=== PATIENT | female | born 1955 ===

== ENCOUNTER 2016-10-20 16:23 | Observation (INO) | payer BC ==
[2016-10-20 16:56] VITALS: BMI 25.2
--- NOTE | 2016-10-20 17:07 | ED PDOC ---
Arrival/HPI - General Time Seen by Provider: 10/20/16 16:29 Historian: Patient - History of Present Illness Narrative History of Present Illness (Text): 10/20/16 17:04 61 year old female, pmh including hypertension/hyperlipidemia, nkda, complaining of elevated blood pressure and lt. sided chest discomfort/pain/ palpitation and elevated blood pressure x 1 day. Pt. stated that she woke up this morning with left sided chest discomfort, feeling blood pressure elevated, went to see the Dr. Blake's LABOR[employer] C[employer]TING TOOL and told her to come to the ER for evaluation, no shortness of breath but there is lt. sided chest weird sensation as if someone is stepping on it with on and off timing, no coughing, no fever or chills, no diarrhea, no other medical or psychological complaints. Past Medical History - Provider Review Nursing Documentation Reviewed: Yes Family/Social History - Physician Review Nursing Documentation Reviewed: Yes Family/Social History: Unknown Family HX Allergies/Home Meds Allergies/Adverse Reactions: Allergies No Known Allergies Allergy (Verified 10/20/16 17:02) Home Medications: Home Meds Medication Instructions Recorded Confirmed Ezetimibe [Zetia] 10 mg PO DAILY 10/20/16 10/20/16 Lisinopril [Zestril] 10 mg PO DAILY 10/20/16 10/20/16 Metoprolol Succinate XL [Toprol XL] 25 mg PO BRK 10/20/16 10/20/16 Review of Systems - Review of Systems Constitutional: absent: Fatigue, Fevers ENT: absent: Hearing Changes Respiratory: absent: SOB, Cough Cardiovascular: Chest Pain Gastrointestinal: absent: Abdominal Pain, Diarrhea, Nausea, Vomiting Musculoskeletal: absent: Arthralgias Skin: absent: Rash, Pruritis, Skin Lesions Hemo/Lymphatic: absent: Adenopathy, Easy Bleeding Physical Exam Vital Signs Reviewed: Yes Vital Signs Temp Pulse Resp BP Pulse Ox 10/20/16 20:28 68 18 143/78 95 10/20/16 19:37 60 177/104 H 10/20/16 16:54 98.1 F 68 14 180/85 H 99 Temperature: Afebrile Blood Pressure: Hypertensive Pulse: Regular Respiratory Rate: Normal Appearance: Positive for: Well-Appearing, Non-Toxic, Comfortable Pain Distress: None Mental Status: Positive for: Alert and Oriented X 3 - Systems Exam Head: Present: Atraumatic, Normocephalic Pupils: Present: PERRL Extroacular Muscles: Present: EOMI Conjunctiva: Present: Normal Mouth: Present: Moist Mucous Membranes Neck: Present: Normal Range of Motion Respiratory/Chest: Present: Clear to Auscultation, Good Air Exchange. No: Respiratory Distress, Accessory Muscle Use Cardiovascular: Present: Regular Rate and Rhythm, Normal S1, S2. No: Murmurs Abdomen: Present: Normal Bowel Sounds. No: Tenderness, Distention, Peritoneal Signs Back: Present: Normal Inspection Upper Extremity: Present: Normal Inspection. No: Cyanosis, Edema Lower Extremity: Present: Normal Inspection. No: Edema Neurological: Present: GCS=15, Speech Normal, Motor Func Grossly Intact, Gait Normal, Memory Normal Skin: Present: Warm, Dry, Normal Color. No: Rashes Psychiatric: Present: Alert, Oriented x 3, Normal Insight, Normal Concentration Medical Decision Making ED Course and Treatment: 10/20/16 17:02 -labs -ekg/cxr -aspirin 325mg -Observe and reassess 10/20/16 19:12 -EKG: NSR @ 71 BPM, no ST elevation or depression, no T wave inversion. -Chest x-ray: no active disease -Labs show no acute findings, 1st set of troponin is negative. -Pt. stated that she still feels on and off palpitation. Pt. needs to be admitted for observation. Clonidine 0.1mg po ordered. -Dr. Emmanuel paged. 10/20/16 20:14 -Dr. Pace is covering for Dr. Emmanuel, discussed about the labs/radiology studies, request to admit to Dr. Pace. Dr. Pace request Dr. Meadows on routine consult consult. . -I discussed with Dr. Sutton about the case/discussion, he will put in the observation order as the patient will need 24 hours of troponin series. - Lab Interpretations Lab Results: 10/20/16 17:30 10/20/16 17:30 Lab Results 10/20/16 17:30: WBC 7.1, RBC 4.40, Hgb 12.8, Hct 38.3, MCV 87.0, MCH 29.1, MCHC 33.4, RDW 13.3, Plt Count 283, MPV 9.4, Gran % 62.2, Lymph % (Auto) 28.1, [place] % (Auto) 8.3 H, Eos % (Auto) 1.1 L, Baso % (Auto) 0.3, Gran # 4.42, Lymph # 2.0 , [place] # 0.6, Eos # 0.1, Baso # 0.02 10/20/16 17:30: Sodium 142, Potassium 4.3, Chloride 103, Carbon Dioxide 32, Anion Gap 11, BUN 18, Creatinine 0.8, Est GFR ( Amer) > 60, Est GFR (Non- Af Amer) > 60, Random Glucose 85, Calcium 9.3, Total Bilirubin 0.4, AST 33, ALT 34, Alkaline Phosphatase 62, Lactate Dehydrogenase 462, Total Creatine Kinase 118, Troponin I < 0.01, Total Protein 7.6, Albumin 4.3, Globulin 3.3, Albumin/ Globulin Ratio 1.3, Lipase 228 10/20/16 17:20: Urine Color Straw, Urine Appearance Clear, Urine pH 7.0, Ur Specific [place] 1.010, Urine Protein Negative, Urine Glucose (UA) Negative, Urine Ketones Negative, Urine Blood Small H, Urine Nitrate Negative, Urine Bilirubin Negative, Urine Urobilinogen 0.2, Ur Leukocyte Esterase Negative, Urine RBC 0 - 2, Urine WBC 0 - 2, Ur Epithelial Cells 0 - 2 I have reviewed the lab results: Yes Interpretation: No clinic. lab abnormalty - RAD Interpretation Radiology Orders: 10/20/16 17:03 CHEST PORTABLE [RAD] Stat Chest x-ray: no active disease Printing Gray Cloth Tender: Radiologist - EKG Interpretation EKG Interpretation (Text): 10/20/16 17:08 NSR @ 71 BPM, no ST elevation or depression, no T wave inversion. Interpreted by ED Physician: Yes Type: 12 lead EKG - Medication Orders Current Medication Orders: Discontinued Medications Acetaminophen (Tylenol 325mg Tab) 650 mg PO STAT STA Stop: 10/21/16 11:30 Last Admin: 10/21/16 12:00 Dose: 650 mg Aspirin (Aspirin) 325 mg PO STAT STA Stop: 10/20/16 17:04 Last Admin: 10/20/16 17:28 Dose: 325 mg Aspirin (Aspirin Chewable) 81 mg PO DAILY [facility] Last Admin: 10/21/16 09:11 Dose: 81 mg Clonidine HCl (Catapres) 0.1 mg PO STAT STA Stop: 10/20/16 19:12 Last Admin: 10/20/16 19:37 Dose: 0.1 mg Ezetimibe (Zetia) 10 mg PO DAILY [facility] Last Admin: 10/21/16 09:11 Dose: 10 mg Lisinopril (Zestril) 10 mg PO DAILY [facility] Last Admin: 10/21/16 09:11 Dose: 10 mg Metoprolol Succinate (Toprol Xl) 25 mg PO BRK [facility] Last Admin: 10/21/16 09:12 Dose: 25 mg Pneumococcal Polyvalent Vaccine (Pneumovax 23 Vaccine) 0.5 ml IM .ONCE ONE Stop: 10/20/16 22:42 Zolpidem Tartrate (Ambien) 5 mg PO STAT STA PRN Reason: Protocol Stop: 10/20/16 21:31 Last Admin: 10/20/16 21:45 Dose: 5 mg Re-Assess: Reassess Psych Meds Document 10/20/16 22:45 HARRY (Rec: 10/20/16 23:12 HARRY [facility] [id number]) Reassess Psych Med Effective - PA / [employer] / Resident Statement / has reviewed & agrees with the documentation as recorded. Disposition/Present on Arrival - Present on Arrival Any Indicators Present on Arrival: No History of DVT/PE: No History of Uncontrolled Diabetes: No Urinary Catheter: No History of Decub. Ulcer: No - Disposition Have Diagnosis and Disposition been Completed?: Yes Diagnosis: Palpitation, Hypertension, Chest pain Disposition: HOSPITALIZED Disposition Time: 19:13 Patient Plan: Observation Condition: STABLE
[2016-10-20 17:51] LABS: BASO # 0.02 K/mm3 (0.0-2.0); BASO % 0.3 % (0.0-3.0); EOS # 0.1 (0.0-0.7); EOS % 1.1 % (1.5-5.0); GRAN # 4.42 (1.4-6.5); GRAN % 62.2 % (50.0-68.0); HEMATOCRIT 38.3 % (36.0-48.0); LYMPH % 28.1 % (22.0-35.0); MEAN CORPUSCULAR HEMOGLOBIN 29.1 pg (25.0-35.0); MEAN CORPUSCULAR HGB CONC 33.4 g/dl (31.0-37.0); MEAN PLATELET VOLUME 9.4 fl (7.0-11.0); MONO # 0.6 (0.1-0.6); MONO % 8.3 % (1.0-6.0); RED CELL DISTRIBUTION WIDTH 13.3 % (11.5-14.5); WHITE BLOOD COUNT 7.1 10^3/ul (4.5-11.0)
--- NOTE | 2016-10-20 17:58 | RAD ---
HISTORY: medical clearance COMPARISON: 03/21/2014 FINDINGS: LUNGS: The lungs are well inflated and clear. PLEURA: No significant pleural effusion identified, no pneumothorax apparent. CARDIOVASCULAR: Normal. OSSEOUS STRUCTURES: No significant abnormalities. VISUALIZED UPPER ABDOMEN: Normal. OTHER FINDINGS: None. IMPRESSION: No active pulmonary disease.
[2016-10-20 18:00] LABS: ALB/GLOB RATIO 1.3 (1.1-1.8); ALKALINE PHOSPHATASE 62 U/L (38-126); ALT/SGPT 34 U/L (7-56); AST/SGOT 33 U/L (14-36); BILIRUBIN,TOTAL 0.4 mg/dL (0.2-1.3); BLOOD UREA NITROGEN 18 mg/dL (7-21); CALCIUM 9.3 mg/dL (8.4-10.5); CARBON DIOXIDE 32 mmol/L (21-33); CHLORIDE 103 mmol/L (98-107); GFR AFRICAN-AMERICAN > 60; GLUCOSE,RANDOM 85 mg/dL (70-110); LIPASE 228 U/L (23-300); POTASSIUM 4.3 mmol/L (3.6-5.0); SODIUM 142 mmol/L (132-148); TOTAL PROTEIN 7.6 g/dL (5.8-8.3)
[2016-10-20 18:15] LABS: TROPONIN I < 0.01 ng/mL
[2016-10-20 21:12] VITALS: O2SAT 97
--- NOTE | 2016-10-20 21:34 | CP.PCM.PN ---
Subjective - Date & Time of Evaluation Date of Evaluation: 10/20/16 Time of Evaluation: 21:31 - Subjective Subjective: S: Requests a sleeping pill. Seen by bedside. States that she takes melatonin at home. Has no other complaints now. Denies chest pain, sob, nausea, sweating , palpitations. O: Last Vital Signs 3 Temp 97.0 F L 10/20/16 21:11 Pulse 59 L 10/20/16 21:11 Resp 20 10/20/16 21:11 BP 127/75 10/20/16 21:11 Pulse Ox 97 10/20/16 21:11 Awake, alert, not in distress. LUNGS:Nomal breathing pattern. A:Adjustment insomnia. P:Ambien 5 mg PO now. Objective - Vital Signs/Intake and Output Vital Signs (last 24 hours): Temp Pulse Resp BP Pulse Ox 97.0 F L 59 L 20 127/75 97 10/20/16 21:11 10/20/16 21:11 10/20/16 21:11 10/20/16 21:11 10/20/16 21:11 - Medications Medications: Current Medications Aspirin (Aspirin Chewable) 81 mg PO DAILY [facility] Ezetimibe (Zetia) 10 mg PO DAILY [facility] Lisinopril (Zestril) 10 mg PO DAILY [facility] Metoprolol Succinate (Toprol Xl) 25 mg PO BRK [facility]
[2016-10-20 22:41] VITALS: TEMP 98.1
[2016-10-20] MEDS ORDERED: Pneumococcal 23-Valent Vaccine IM ONE (22:41)
[2016-10-20 23:29] LABS: URINE BILIRUBIN NEGATIVE (NEGATIVE); URINE BLOOD SMALL (NEGATIVE); URINE GLUCOSE (UA) NEGATIVE (NEGATIVE); URINE KETONE NEGATIVE (NEGATIVE); URINE LEUKOCYTE ESTERASE NEGATIVE Leu/uL (NEGATIVE); URINE PROTEIN NEGATIVE mg/dL (<30 mg/dL); URINE UROBILINOGEN 0.2 E.U./dL (<1 E.U./dL)
[2016-10-20 23:30] LABS: URINE APPEARANCE CLEAR (CLEAR); URINE COLOR STRAW (YELLOW)
[2016-10-20 23:59] LABS: URINE EPITHELIAL CELLS 0 - 2 /hpf (0-5); URINE RBC 0 - 2 /hpf (0-2); URINE WBC 0 - 2 /hpf (0-6)
[2016-10-21 00:27] LABS: TROPONIN I < 0.01 ng/mL
[2016-10-21] MEDS ORDERED: Metoprolol Succinate 25 mg XL Tab PO SCH (08:00)
[2016-10-21 08:02] LABS: TROPONIN I < 0.01 ng/mL
[2016-10-21 09:13] VITALS: BP 126/70
[2016-10-21 09:14] VITALS: RESP 20
[2016-10-21 12:51] VITALS: PULSE 68
--- NOTE | 2016-10-21 18:51 | CARD ---
APPROVED REPORT EXAM: Two-dimensional and M-mode echocardiogram with Doppler and color Doppler. INDICATION 2D DIMENSIONS IVSd0.9 (0.7-1.1cm)LVDd4.8 (3.9-5.9cm) PWd0.7 (0.7-1.1cm)LVDs2.8 (2.5-4.0cm) FS (%) 41.9 %LVEF (%)50.0 (>50%) M-Mode DIMENSIONS Left Atrium (MM)3.30 (2.5-4.0cm)Aortic Root2.60 (2.2-3.7cm) Aortic Cusp Exc.1.90 (1.5-2.0cm) Aortic Valve AoV Peak Dfwnkvaz041.0cm/Bárbara Peak GR.7mmHg Mitral Valve MV E Wzvrophx18.7cm/sMV A Rghuxlam55.5cm/sE/A ratio0.8 TDI Lateral E' Peak V8.97cm/sMedial E' Peak V9.16cm/sE/Lateral E'7.0 E/Medial E'6.8 Tricuspid Valve TR Peak Ebhyvxqj121fc/sRAP [id number] Peak Gr.17mmHg [id number] LEFT VENTRICLE The left ventricle is normal size. There is normal left ventricular wall thickness. Left ventricle systolic function is borderline. Mild septal hypokinesis Transmitral Doppler flow pattern is Grade I-abnormal relaxation pattern. RIGHT VENTRICLE The right ventricle is normal size. There is normal right ventricular wall thickness. The right ventricular systolic function is normal. ATRIA The left atrium size is normal. The right atrium size is normal. AORTIC VALVE The aortic valve is not well visualized. MITRAL VALVE The mitral valve is not well visualized. GREAT VESSELS The aortic root is normal in size. The IVC collapses <50% with inspiration. PERICARDIAL EFFUSION There is no pericardial effusion. <Conclusion> Poor Echo Window The left ventricle is normal size. There is normal left ventricular wall thickness. Left ventricle systolic function is borderline. Mild septal hypokinesis Transmitral Doppler flow pattern is Grade I-abnormal relaxation pattern.
--- NOTE | 2016-10-21 19:29 | CARD ---
APPROVED REPORT EKG Measurement Heart [id number] ID [id number] <Conclusion> Normal sinus rhythm Normal ECG
--- NOTE | 2016-10-21 20:00 | CON ---
DATE: CARDIOLOGY CONSULTATION REASON FOR CONSULTATION: Chest pain and palpitation. HISTORY OF PRESENT ILLNESS: The patient is a 61-year-old female, who has a history of hypertension and hyperlipidemia, was admitted because of left-sided chest pain and uncontrolled hypertension. The patient did report palpitation, but does not recall experiencing dizziness or fainting. The patient states that she underwent a nuclear stress test last month at [facility] and was told it was okay and she is being followed by an outside Kitchen Aide. At this time, the patient denies any chest pain or shortness of breath and does not recall the character of her chest pain on presentation. MEDICATIONS: Aspirin 81 mg once a day, Toprol-XL 25 mg once a day, Zestril 10 mg once a day, Zetia 10 mg once a day. REVIEW OF SYSTEMS: No vomiting or diarrhea. No fever or chills. PHYSICAL EXAMINATION GENERAL: The patient is a middle-aged female who does not appear to be in any distress. VITAL SIGNS: Blood pressure 126/70, heart rate 66, temperature 98.1, respiration 20. HEENT: Normocephalic. NECK: No JVD. CHEST: Clear. HEART: S1 and S2 regular. ABDOMEN: Soft. EXTREMITIES: No edema. LABORATORY DATA: SMA-7; sodium 142, potassium 4.3, chloride 103, CO2 32, glucose 85, BUN 18, creatinine 0.8, 3 sets of troponins are negative. Lipase is within normal limits. CBC; WBC 7.1, hemoglobin 12.8, hematocrit 38.2, platelet count 283,000. Chest x-ray was unremarkable. EKG revealed normal sinus rhythm. ASSESSMENT: 1. Chest pain, myocardial infarction is ruled out. 2. Hypertension. 3. Hyperlipidemia. RECOMMENDATIONS: Continue aspirin, Toprol XL, Zestril, and Zetia. Obtained the results of the recent Myoview stress test that was performed at [facility] last month and I would review the echocardiography study performed today. Sergio Raines MD
--- NOTE | 2016-10-21 22:49 | HP ---
HISTORY OF PRESENT ILLNESS: The patient is a 61-year-old female, presented to ED with left-sided chest pain. She had a nuclear cardiac test done at [facility] last month. As per the patient, the cardiac stress test was okay. She sees a shade cloth finisher at [facility]. Denies any fever, cough with expectoration. Chest x-ray did not show any infiltrate. PAST MEDICAL HISTORY: Hypertension and hyperlipidemia. PAST SURGICAL HISTORY: None. FAMILY HISTORY: Noncontributory. ALLERGIES: NO KNOWN DRUG ALLERGIES. PERSONAL HISTORY: Nonsmoker, no history of drug abuse. HOME MEDICATIONS: Lisinopril 10 mg daily, metoprolol 25 mg daily, Zetia 10 mg daily. REVIEW OF SYSTEMS: As per HPI. Rest of the 12-point review of systems reviewed and negative.. PHYSICAL EXAMINATION: GENERAL: Comfortable in bed, in no acute distress. VITAL SIGNS: Temperature 98.7, heart rate is 68 per minute, blood pressure 143/78, pulse ox is 98% on room air, respiratory rate 18 per minute. HEENT: Normal. Oral mucosa moist. NECK: Supple. CHEST: Air entry present and equal and bilaterally. No added sounds. CARDIOVASCULAR EXAM: Within normal limits. ABDOMEN: Soft, nontender. No hepatosplenomegaly. EXTREMITIES: No edema. CENTRAL NERVOUS SYSTEM: Alert and oriented x3. No focal sensory or motor deficit. SKIN: Warm, dry. No petechiae. No rash. LABORATORY DATA: White count 7.1, hemoglobin of 12.8, hematocrit 38.3 and platelet count 283. Sodium is 142, potassium 4.3, BUN 18, creatinine 0.8, glucose 85. EKG, no ST-T changes. Chest x-ray, no infiltrate. ASSESSMENT: 1. Left-sided chest pain. 2. Rule out [id number] myocardial infarction. 3. Monocytosis. PLAN: She will be admitted to telemonitoring. Three sets of cardiac enzymes will be monitored. Cardiology consultation with Dr. Meadows requested. We will continue beta claire, metoprolol 25 mg daily, continue lisinopril 10 mg daily. We will continue Zetia 10 mg daily, aspirin 81 mg daily. She has received Pneumovax in the ER. Leidy Pace MD [facility] # [id number]
--- NOTE | 2016-10-22 02:09 | DS ---
DATE OF DISCHARGE: 10/21/2016 DISCHARGE DIAGNOSES: 1. Left-sided chest pain. 2. Non-ST elevation myocardial infarction, ruled out. 3. Monocytosis. 4. Mild left ventricular dysfunction. HOSPITAL COURSE: Patient was admitted with left-sided chest pain, 3 sets of cardiac enzymes were negative, EKG did not show any ST-T changes. She had an echocardiogram done during hospitalization, which showed borderline LV function. She has a cardiac stress test done at [facility] a month ago, which was negative. She follows with her wire wrapper machine operator at [facility]. She is being discharged in stable condition. PHYSICAL EXAMINATION ON DISCHARGE: GENERAL: Comfortable in bed, no acute distress. VITAL SIGNS: Temperature 98.7, heart rate 80 per minute, blood pressure 130/70, respiratory rate 18 per minute, oxygen saturation 98% on room air. HEENT: Oral mucosa dry. Pallor positive. NECK: Supple. CHEST: Air entry present, equal bilateral. No added sounds. CARDIOVASCULAR: S1 and S2, normal. No murmur or gallop. ABDOMEN: Soft, nontender. No hepatosplenomegaly. EXTREMITIES: No edema. NEUROLOGIC: Spine nontender. DISPOSITION: Discharge home. Followup with in one week. Followup with cardiology in one week. DISCHARGE MEDICATIONS: Aspirin 81 mg daily, Zetia 10 mg daily, Lisinopril 10 mg daily, Toprol 25 mg daily. CONDITION ON DISCHARGE: Stable. DIET: Regular. ACTIVITY: As tolerated. Discussed with the patient, discussed with the staff nurse. Time spent in coordinating care and discharge, 55 minutes. Leidy Pace MD
== END 2016-10-21 12:59 | disposition home or self-care (01) ==
LOC: ED 16:23 → ERH 19:42 → 3RSO 20:44
PROVIDERS: ADMIT Internal Medicine Medical Oncology; ATTEND Internal Medicine Medical Oncology
DX: R07.9 Chest pain, unspecified (principal); F51.02 Adjustment insomnia; D72.821 Monocytosis (symptomatic); E78.5 Hyperlipidemia, unspecified; I10 Essential (primary) hypertension; Z79.899 Other long term (current) drug therapy; R00.2 Palpitations; I51.9 Heart disease, unspecified
CPT/HCPCS: 36415; 71010; 80053; 81001; 82550; 83615; 83690; 84484; 85025; 93005; 93306; 99285; G0378